=== PATIENT | female | born 1980 ===

== ENCOUNTER → 2021-06-20 | Emergency (ER) | payer MEDICAID ==
[~2021-06-20] MED LIST: SODIUM CHLORIDE 0.9% 1000 ML 1,000 ML IV ONE
[2021-06-20 17:12] VITALS: BP 133/76
--- NOTE | 2021-06-20 20:02 | Emergency Department Report ---
Blank Doc - Documentation Documentation: 41-year-old female who 35 weeks emerge department complaining of cough congestion coryza shortness of breath with a suspicion for daysi the coronavirus which has caused her to have cramps and pain across her abdomen radiating towards her left flank region of unknown etiology C suspicious of this in regards to a safe and was advised by her CERTIFIED COURT INTERPRETER to come to emerge department to be checked. Upon my completion of the history and examination I did explain the test that were going to be arranged in the anticipated care Ms. Martinez then advised that she had not yet had her baby evaluated as recommended by her CERTIFIED COURT INTERPRETER as she question upon her arrival initially this was discussed with the charge nurse and the attending plan is to have Ms. Martinez escorted over to labor and delivery for evaluation as she appears to be stable at current
== END | disposition still patient (30) ==
LOC: ED 13:01
DX: M79.18 Myalgia, other site (principal); Z53.21 Procedure and treatment not carried out due to patient leaving prior to being seen by health care provider

== ENCOUNTER 2021-12-02 08:19 | Day surgery (SDC) | payer MEDICAID ==
--- NOTE | 2021-12-01 23:29 | Short Stay Summary ---
Short Stay Documentation Date of service: 12/02/21 - History H&P: obtained from office Past Medical History: No medical history Past Surgical History: No surgical history Social history: - Allergies and Medications Current Medications: Allergies No Known Allergies Allergy (Verified 11/30/21 18:13) Home Medications Medication Instructions Recorded Confirmed Last Taken Type No Known Home Medications [No 11/30/21 11/30/21 Unknown History Reported Home Medications] Active Medications Acetaminophen (Acetaminophen 500 Mg Tab) 1,000 mg PO PREOP JEROME Celecoxib (Celecoxib 200 Mg Cap) 200 mg PO PREOP JEROME Gabapentin (Gabapentin 300 Mg Cap) 300 mg PO PREOP JEROME Lactated Ringer's (Lactated Ringers) 1,000 mls @ 100 mls/hr IV DIRECT JEROME Stop: 12/02/21 23:59 Cefazolin Sodium (Ancef/Sterile Water 2 Gm/20 Ml) 2 gm in 20 mls @ 80 mls/hr IV PREOP NR; Protocol Midazolam HCl (Midazolam 2 Mg/2 Ml Inj) 2 mg IV PREOP JEROME Scopolamine (Scopolamine Transdermal Patch 72 Hr) 1 each TD PREOP JEROME - Physical exam General appearance: no acute distress Integumentary: no rash HEENT: Atraumatic Lungs: Clear to auscultation Breasts: deferred Heart: Regular rate, Normal S1, Normal S2 Gastrointestinal: normal, normoactive bowel sounds Female Genitourinary: normal Rectal Exam: deferred Extremities: no ischemia, No edema - Brief post op/procedure progress note Date of procedure: 12/02/21 Pre-op diagnosis: Undesired fertility Post-op diagnosis: same (With left dermoid cyst) Procedure: Left salpingo-oophorectomy with right salpingectomy Anesthesia: GETA Findings: Markedly enlarged left ovary which when ruptured showed contents significant for presence of a dermoid cyst. Otherwise normal right adnexa Surgeon: TAM JACKSON Estimated blood loss: 50-100ml Pathology: list (Left tube and ovary, right tube) Specimen disposition: to lab Condition: stable - Hospital course Hospital course: Unremarkable - Disposition Condition at discharge: Good Disposition: 01 HOME / SELF CARE / HOMELESS Short Stay Discharge Plan Activity: advance as tolerated Weight Bearing Status: Weight Bear as Tolerated Diet: regular Follow up with: TAM JACKSON MD [Staff Physician] - 14 Days Prescriptions: Ibuprofen [Motrin] 800 mg PO Q8HR PRN #30 tablet PRN Reason: Pain, Mild (1-3) oxyCODONE /ACETAMINOPHEN [Percocet 5/325] 1 tab PO Q4HR #20 tab
[~2021-12-02 08:19] MED LIST changes: +ACETAMINOPHEN 500 MG TAB PO SCH; +CELECOXIB 200 MG CAP PO SCH; +GABAPENTIN 300 MG CAP PO SCH; +LACTATED RINGERS 1,000 ML IV SCH; +MIDAZOLAM 2 MG/2 ML INJ IV SCH; +SCOPOLAMINE TRANSDERMAL PATCH 72 HR TD SCH; -SODIUM CHLORIDE 0.9% 1000 ML 1,000 ML IV ONE; +ceFAZolin/Water 2 GM/20 ML 2 GM/20 ML SYRINGE IV NR
--- NOTE | 2021-12-02 09:17 | Anesthesia Day of Surgery ---
Anesthesia Day of Surgery - Day of Surgery Patient Examined: Yes Patient H&P Reviewed: Yes Patient is NPO: Yes
--- NOTE | 2021-12-02 09:17 | Anesthesia Consultation ---
Anesthesia Consult and Med Hx Date of service: 12/02/21 - Airway Anesthetic Teeth Evaluation: Good ROM Head & Neck: Adequate Mental/Hyoid Distance: Adequate Mallampati Class: Class I Intubation Access Assessment: Good - Pre-Operative Health Status ASA Pre-Surgery Classification: ASA2 Proposed Anesthetic Plan: General - Pulmonary Hx Smoking: No Hx Asthma: Yes (no recent inhaler use) Hx Respiratory Symptoms: No - Cardiovascular System Hx Hypertension: No - Central Nervous System CVA: No - Endocrine Hx Renal Disease: No Hx Liver Disease: No Hx Insulin Dependent Diabetes: No Hx Non-Insulin Dependent Diabetes: No Hx Thyroid Disease: No - Additional Comments Anesthesia Medical History Comments: No hx anesthetic complications.
[2021-12-02] MEDS ORDERED: HYDROmorphone 0.5 MG/0.5 ML INJ IV PRN (09:30)
[2021-12-02] MEDS ORDERED: oxyCODONE /ACETAMINOPHEN 5-325MG TAB PO PRN (09:30)
[2021-12-02] MEDS ORDERED: ONDANSETRON 4 MG/2 ML INJ IV PRN (09:30)
[2021-12-02] MEDS ORDERED: BUPIVACAINE/PF (0.25%) 2.5 MG/ML 30 ML VIAL INFILTRATI ONE ×2 (09:55→11:02)
[2021-12-02] MEDS ORDERED: LIDOCAINE MPF (2%) 20 MG/1 ML VIAL 5 ML ONE (09:59)
[2021-12-02] MEDS ORDERED: fentaNYL 100 MCG/2 ML INJ ONE ×2 (10:00→11:13)
[2021-12-02] MEDS ORDERED: propofoL 200 MG/20 ML VIAL IV ONE (10:01)
[2021-12-02] MEDS ORDERED: MIDAZOLAM 2 MG/2 ML INJ ONE (10:27)
[2021-12-02] MEDS ORDERED: SODIUM CHLORIDE 0.9% IRR 1,500 ML BOTTLE IR ONE (11:02)
[2021-12-02] MEDS ORDERED: ePHEDrine SULFATE 50 MG/1 ML INJ ONE (11:10)
[2021-12-02] MEDS ORDERED: LACTATED RINGERS 1,000 ML ONE (11:14)
[2021-12-02] MEDS ORDERED: KETOROLAC 30 MG/1 ML INJ ONE (11:37)
[2021-12-02] MEDS ORDERED: dexAMETHasone 20 MG/5 ML VIAL ONE (11:37)
[2021-12-02] MEDS ORDERED: ONDANSETRON 4 MG/2 ML INJ ONE (11:37)
[2021-12-02] MEDS ORDERED: ROCURONIUM 50 MG/5 ML INJ IV ONE (11:37)
--- NOTE | 2021-12-02 12:22 | Operative Report ---
Operative Report Operative Report: Preoperative diagnosis: Undesired fertility Postoperative diagnosis: Same with left dermoid cyst Procedure: Bilateral laparoscopic salpingectomy with left oophorectomy Surgeon: Rachel Pruitt Anesthesia: General EBL: Minimal IV fluids: 1000 mL Urine output: 150 mL Findings: Normal uterus tubes and right ovary. With 7 cm left ovary consistent with dermoid cyst Specimens: Portion of right and left fallopian tube, left ovary Complications: None The patient was properly identified as herself. She was then taken to the OR with IV running and in place. She was given general anesthesia without difficulty. She was placed in a dorsal lithotomy position. She was then prepped and draped in normal sterile fashion. Attention was turned to the patient's vagina. Her bladder was drained of clear urine with a red rubber catheter. The speculum was then placed the patient's vagina. The cervix was visualized and grasped with tenaculum. The acorn cannula was then inserted. The surgeon's gloves were changed and attention turned to the patient's abdomen. A small incision was made in the patient's umbilicus incision a 5 mm trocar was placed. The laparoscope confirmed intra-abdominal placement. The abdomen was insufflated with CO2 gas to approximately 25 mmHg. Both fallopian tubes were identified. With direct visualization a second trocar was placed through an incision in the left lower quadrant. Both tubes were found and followed out to the fimbriated ends. On the left side it was noted that there was a large cyst on the ovary. . The surgeon attempted to drain the cyst using the laparoscopic scissors, however the fluid that exuded from the cyst was fatty in nature and the contents of the cyst were consistent with a dermoid cyst. At this point the decision was made to remove the cyst and ovary in total. A third trocar was placed and incision made in the midline just above the symphysis pubis. The infundibulopelvic ligament was cauterized and transected as was the portion of the broad ligament and the utero-ovarian ligament. A second area across the proximal portion of the tube was cauterized and transected and the ovary and tube were completely detached. At this point a each tube was cauterized at the portion nearest the cornua, then cauterized across the broad ligament until the tube was completely detached. The left lateral incision was then extended and a 10 cm trocar was placed into that incision following which the Endopouch was used to remove the ovary and tube through the left incision. It was further noted at this time that the cyst contents contain hair which further the diagnosis of a dermoid cyst. The right tube was removed without difficulty. There was excellent hemostasis at the end of this portion of the procedure. Each tube was handed off for pathology. At this point the abdomen was deflated. All instruments were then removed from the abdomen. The incisions were then closed with 4-0 Monocryl, with the larger incision being closed in 2 layers the first layer being 0 Vicryl and the second being Monocryl. The incisions were also injected with quarter percent Marcaine. The patient tolerated the procedure well she was then awakened and taken recovery in stable condition. Sponge needle and instrument counts were correct 2.
--- NOTE | 2021-12-02 13:54 | Post Anesthesia Evaluation ---
- Post Anesthesia Evaluation Patient Participated: Yes Airway Patent: Yes Stable Respiratory Function: Yes Nausea/Vomiting: No Temp > 96.8F: Yes Pain Manageable: Yes Adequeate Hydration: Yes Anesthesia Complications: No
[2021-12-02 16:10] VITALS: BP 128/75
[2021-12-02] MEDS ORDERED: GLYCOPYRROLATE 0.4 MG/2 ML INJ ONE (16:10)
[2021-12-02] MEDS ORDERED: NEOSTIGMINE 10MG/10 ML INJ MDV ONE (16:10)
== END 2021-12-02 14:40 | disposition home or self-care (01) ==
LOC: OR 08:19
PROVIDERS: ATTEND Obstetrics & Gynecology
DX: Z30.2 Encounter for sterilization (principal); Z79.899 Other long term (current) drug therapy; J45.909 Unspecified asthma, uncomplicated; Z90.49 Acquired absence of other specified parts of digestive tract; Z98.890 Other specified postprocedural states; Z72.89 Other problems related to lifestyle
CPT/HCPCS: 58661; 58670; 81025; 88302; 88307; J0690; J1100; J1815; J1885; J2250; J2405; J2704; J2710; J3010; J3490; J7120; 88305